=== PATIENT | female | born 1940 | race Caucasian/White ===

== ENCOUNTER 2016-07-22 22:05 | Emergency (ER) | payer MEDICARE ==
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
[2016-07-23] MEDS ORDERED: Ondansetron ODT TAB* 4 MG ONE (00:27)
[2016-07-23] MEDS ORDERED: Ondansetron ODT TAB* 4 MG PO ONE (00:29)
[2016-07-23 00:43] VITALS: BP 151/86
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
== END 2016-07-23 00:42 | disposition home or self-care (01) ==
LOC: ED 22:05
DX: S20.219A Contusion of unspecified front wall of thorax, initial encounter (principal); R07.9 Chest pain, unspecified; V47.5XXA Car driver injured in collision with fixed or stationary object in traffic accident, initial encounter; Y92.410 Unspecified street and highway as the place of occurrence of the external cause; Y93.9 Activity, unspecified; Y92.9 Unspecified place or not applicable; Y99.9 Unspecified external cause status
CPT/HCPCS: 70450; 71250; 74176; 99283; A9270-GY

== ENCOUNTER 2016-11-04 23:45 | Observation (INO) | payer MEDICARE ==
[2016-11-05 00:09] LABS: Hematocrit 37 % (35-47); Hemoglobin 12.3 g/dl (12.0-16.0); Mean Corpuscular HGB Conc 33 g/dl (31-36); Mean Corpuscular Hemoglobin 32 pg (27-31); Mean Corpuscular Volume 96 fL (80-97); Mean Platelet Volume 10 um3 (7.4-10.4); Red Blood Count 3.84 10^6/ul (4.0-5.4); Red Cell Distribution Width 13 % (10.5-15); White Blood Count 9.7 10^3/ul (3.5-10.8)
[2016-11-05 00:25] LABS: Albumin 3.6 g/dL (3.2-5.2); BUN/Creatinine Ratio 17.2 (8-20); Calcium 9.2 mg/dL (8.6-10.3); EGFR African American 58.3 (>60); EGFR Non-African American 45.3 (>60); Globulin 2.9 g/dL (2-4); Total Bilirubin 0.4 mg/dL (0.2-1.0); Total Protein 6.5 g/dL (6.4-8.9)
[2016-11-05 00:26] LABS: Potassium 4.7 mmol/L (3.5-5.0)
--- NOTE | 2016-11-05 00:48 | HP ---
H&P (Free Text) History and Physical: PCP: Khalif Hong MD Neurology: Trudi Shepard MD Date/Time of Evaluation: 11/05/2016 0035 CC: garbled speech HPI: Mrs Miller is a 76YO female HX complex migraine associated with garbled speech presents with rapid onset of headache and garbled speech last night between 1999 and 2100 while getting ready for bed. She had some mild nausea and difficulty swallowing, but no emesis, diarrhea, focal W/N/T, change in vision, chest pain, SOB, palpitations, or F/C. She has had a single similar episode in the past that she thinks was a TIA, but a note from her neurologist, Sarahy Shepard MD, relates he felt it was more likely to be a complex migraine. Currently she feels she is very nearly back to baseline on her speech, and her swallowing and headache are resolved. PMedHx DM2 AFIB on warfarin CKD stg 3a breast CA s/p lumpectomy & radiation HTN HLD hypothyroidism GERD migraines chronic gait instability (falls ~3x/year, last fall last Wednesday) IBS OAB Ambulatory Orders Atorvastatin* [Lipitor*] 10 mg PO EVERY OTHER DAY 05/27/12 Cholecalciferol [Vitamin D3] 3,000 unit PO DAILY 09/07/12 Magnesium 250 mg PO BID 09/07/12 Metformin HCl 500 mg PO TID 09/07/12 Metoprolol Succinate [Metoprolol Succinate ER] 100 mg PO BID 09/07/12 Multiple Vitamin [Multivitamins] 1 cap PO BEDTIME 09/07/12 Psyllium W/ Calcium [Metamucil Plus Calcium] 1 cap PO BEDTIME 09/07/12 Vitamin E 400 unit PO BEDTIME 09/07/12 Aspirin [Aspirin 81] 81 mg PO BEDTIME 02/20/14 Lactobacillus Acidophilu (GG)* [Culturelle*] 1 cap PO DAILY 02/20/14 Oxybutynin TAB* 10 mg PO DAILY 09/07/14 Warfarin TAB(*) 2.5 mg PO DAILY 09/07/14 Calcium Citrate-Vitamin D [Calcium Citrate+D] 1 tab PO DAILY 08/03/16 Esomeprazole Magnesium [Nexium] 40 mg PO DAILY 08/03/16 Levothyroxine TAB* [Synthroid TAB*] 50 mcg PO DAILY 08/03/16 Nortriptyline CAP* [Pamelor CAP*] 10 mg PO BEDTIME 08/03/16 Olopatadine 0.2% (NF) [Pataday 0.2% (NF)] 1 drop BOTH EYES DAILY PRN 08/03/16 Wheat Dextrin [Benefiber For Children] 1 pow PO BEDTIME 08/03/16 Allergies Propoxyphene [From Darvon] Allergy (Verified 01/23/14 10:56) DIZZINESS, N/V Silver Sulfadiazine [From Silvadene] Allergy (Verified 08/03/16 13:45) Unknown Reaction Details Sulfa Drugs Allergy (Verified 01/23/14 10:56) "SPACEY"UN COORDINATED ORAL-SEE ABOVE TOPICAL SULFA- RASH MOST ADHESIVE Allergy (Uncoded 01/23/14 10:56) Rash NARCOTICS Allergy (Uncoded 01/23/14 10:56) SENSITVE TO PSurgHx L lumpectomy hysterectomy w/ appendectomy L2 surgery w/ plate OU cataract extractions tonsillectomy SocHx: denies HX tobacco, alcohol, & recreational drugs; , lives alone , 3 children, was planning to move in today with her son & [id number] in [facility] which she is happy about; full code status, considering DNR FamHx: Mother: multi-infarct dementia, "respiratory problems"; Father: passed of CAD in his 60s ROS: as above, otherwise reviewed and all were negative Constitutional: NAD, normally developed, well-nourished elderly white female vitals: Vital Signs Temp 36.7 C 11/05/16 03:50 Pulse 80 11/05/16 03:50 Resp 14 11/05/16 03:50 BP 144/76 11/05/16 03:50 Pulse Ox 95 11/05/16 03:50 Intake & Output 11/04/16 11/04/16 11/05/16 11:59 23:59 11:59 Intake Total 0 Balance 0 Weight 61.87 kg Intake: Oral 0 HEENM: atraumatic; sclera/conjunctiva: non-icteric/clear; blephara: normal; hearing: clinically intact; oropharynx: clear, mucosa tacky Neck: soft tissue: non-tender; thyroid: normal Pulmonary: clear to auscultation bilaterally, good aeration, no accessory muscle use CV: RR/RR, normal S1S2, no carotid bruit, no jugular venous distention, 2+ B DP/ PT, no edema Abdominal: soft, non-distended, non-tender, no rebound/guarding/rigidity, normoactive bowel sounds, no hepatosplenomegaly or masses, no costovertebral angle tenderness Musculoskeletal: general: grossly intact, multiple DIP joint deformities of OA Integumental: normal appearance and texture of exposed skin Neurological cranial nerves II: visual posey tested & intact III/IV/: symmetric light reflex, EOMI/PERRLA V: intact facial sensation & mastication VII: intact facial symmetry & eye clench VIII: hearing mildly decreased IX/X: symmetric palatal motion, no dysarthria XII: midline tongue protrusion, normal voice articulation motor LUE: 4+/5 proximally, distally, & taxation economist strength RUE: 4+/5 proximally, distally, & taxation economist strength LLE: 4+/5 proximally & distally RLE: 4+/5 proximally & distally coordination finger/nose: mildly inaccurate R>L sensory crude touch: globally intact Psychiatric orientation: AA&O to PPS affect: calm mood: cooperative eye contact: good content: reliable responses: timely insight: good Testing: Laboratory Results - last 24 hr 11/04/16 11/04/16 11/04/16 23:56 23:56 23:56 WBC 9.7 RBC 3.84 L Hgb 12.3 Hct 37 MCV 96 MCH 32 H MCHC 33 RDW 13 Plt Count 232 MPV 10 Neut % (Auto) 71.3 Lymph % (Auto) 18.0 L Schleicher % (Auto) 7.5 Eos % (Auto) 2.4 Baso % (Auto) 0.8 Absolute Neuts (auto) 6.9 Absolute Lymphs (auto) 1.8 Absolute Monos (auto) 0.7 Absolute Eos (auto) 0.2 Absolute Basos (auto) 0.1 Absolute Nucleated RBC 0 Nucleated RBC % 0 INR (Anticoag Therapy) 1.86 H APTT 35.2 Sodium 137 Potassium 4.7 Chloride 105 Carbon Dioxide 24 Anion Gap 8 BUN 20 Creatinine 1.16 H Est GFR ( Amer) 58.3 Est GFR (Non-Af Amer) 45.3 BUN/Creatinine Ratio 17.2 Glucose 176 H Lactic Acid Calcium 9.2 Total Bilirubin 0.40 AST 27 ALT 22 Alkaline Phosphatase 88 Troponin I 0.00 Total Protein 6.5 Albumin 3.6 Globulin 2.9 Albumin/Globulin Ratio 1.2 Triglycerides 197 Cholesterol 157 LDL Cholesterol 80 HDL Cholesterol 38.0 Blood Type 11/04/16 11/05/16 23:56 00:20 WBC RBC Hgb Hct MCV MCH MCHC RDW Plt Count MPV Neut % (Auto) Lymph % (Auto) Schleicher % (Auto) Eos % (Auto) Baso % (Auto) Absolute Neuts (auto) Absolute Lymphs (auto) Absolute Monos (auto) Absolute Eos (auto) Absolute Basos (auto) Absolute Nucleated RBC Nucleated RBC % INR (Anticoag Therapy) APTT Sodium Potassium Chloride Carbon Dioxide Anion Gap BUN Creatinine Est GFR ( Amer) Est GFR (Non-Af Amer) BUN/Creatinine Ratio Glucose Lactic Acid 2.5 H* Calcium Total Bilirubin AST ALT Alkaline Phosphatase Troponin I Total Protein Albumin Globulin Albumin/Globulin Ratio Triglycerides Cholesterol LDL Cholesterol HDL Cholesterol Blood Type O Positive ECG, personally reviewed: NSR rate 99, no ischemia CXR, personally reviewed: no acute process CT brain WO, personally reviewed: IMPRESSION: 1. No acute intracranial abnormality 2. Likely age related micro-angiopathic disease. If there is clinical concern for acute on chronic disease, MRI has increased sensitivity. Impression: 76F presenting with TIA vs complex migraine DIAGNOSIS & PLAN Primary TIA vs complex migraine : telemetry : neurochecks : carotid ECHO in AM : MRI brain in AM : consider neurology consult in AM : supplemental oxygen : supportive care Secondary DM2 : check A1c : insulin carb ratio diet : basal/bolus/correctional insulin CKD stg 3a : periodic monitoring HTN : review meds once reconciled HLD : review meds once reconciled hypothyroidism : review meds once reconciled GERD : PO omeprazole OAB : review meds once reconciled Admission Rational: CDU observation for TIA vs complex migraine DVTp: heparin SQ Code Status: full HCP: children
[2016-11-05] MEDS ORDERED: Acetaminophen TAB* 325 MG PO PRN (01:58)
[2016-11-05] MEDS ORDERED: Aspirin Low Dose CHEW TAB* 81 MG PO ONE (01:59)
[2016-11-05 03:33] LABS: Urine Bacteria 1+ (Absent); Urine Bilirubin Negative (Negative); Urine Glucose Negative (Negative); Urine Nitrite Negative (Negative)
[2016-11-05] MEDS: Levothyroxine TAB* 50 MCG TAB PO SCH (05:22)
[2016-11-05] MEDS: Omeprazole CAP* 20 MG PO SCH (07:25)
--- NOTE | 2016-11-05 07:27 | RAD ---
INDICATION: CVA. COMPARISON: Comparison is made with a prior study from January 06, 2014. TECHNIQUE: A portable view of the chest was obtained. FINDINGS: Cardiac and mediastinal contours appear to be within normal limits. The lungs are underinflated and clear. No pleural effusion is seen. IMPRESSION: NO EVIDENCE FOR ACUTE DISEASE.
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
[2016-11-05] MEDS: Insulin LISPRO* 1 UNITS UNIT SUBCUT SCH ×7 (08:10→22:17)
[2016-11-05] MEDS ORDERED: Atorvastatin* 10 MG TAB PO SCH (09:00)
[2016-11-05] MEDS ORDERED: Oxybutynin TAB* 5 MG PO SCH ×2 (09:00→21:00)
[2016-11-05] MEDS ORDERED: Metoprolol Succinate XL TAB* 100 MG PO SCH (09:00)
--- NOTE | 2016-11-05 09:46 | ECHO ---
Patient: MARGARITA HERNANDEZ Rec#: [id number] : 1940 Date: 11/05/2016 Age: 76y Height: 140 cm / 55.1 in Weight: 61 kg / 134.4 lbs Sex: F BSA: 1.5 Room#: [facility] Admit Date#: 11/05/2016 Type: Inpatient Referring: Misha Portillo MD Reading: Kendell Fernando MD Labor Standards Director: Lay Solis RN RDCS CC: Claudia Tyler MD Transthoracic Echocardiogram Indication: TIA BP: 144/76 HR: 78 Rhythm: NSR Findings History: HTN, DM, HLD, migraines, TIA, breast cancer Technical Comments: The study is technically difficult. Suboptimal off axis views offered for interpretation Left Ventricle: The left ventricular chamber size is decreased. There is increased basal septal hypertrophy noted without evidence of an increased gradient across the left ventricular outflow tract. Global left ventricular wall motion and contractility are within normal limits. There is normal left ventricular systolic function. The estimated ejection fraction is 60-65%. Abnormal left ventricular diastolic filling is observed, consistent with impaired relaxation. The lack of left atrial enlargement suggests this finding may not have clinical significance. Left Atrium: The left atrial chamber size is normal. Right Ventricle: The right ventricular chamber size and systolic function are within normal limits. Right Atrium: The right atrial cavity size is normal. Aortic Valve: The aortic valve is trileaflet. The aortic valve leaflets are mildly thickened. There is no evidence of aortic regurgitation. There is no evidence of aortic stenosis. Mitral Valve: The mitral valve leaflets are mildly thickened. There is trace to mild mitral regurgitation. There is no evidence of mitral stenosis. Tricuspid Valve: The tricuspid valve leaflets are normal. There is trace to mild tricuspid regurgitation. There is evidence of borderline pulmonary hypertension. There is no tricuspid stenosis. Pulmonic Valve: The pulmonic valve appears normal. There is mild pulmonic regurgitation. There is no pulmonic stenosis. Pericardium: There is no significant pericardial effusion. A pericardial fat pad is visualized. Aorta: There is no dilatation of the ascending aorta. There is no dilatation of the aortic arch. There is no dilation of the aortic root. Pulmonary Artery: The main pulmonary artery appears normal. Venous: The inferior vena cava is not visualized. Conclusions The study is technically difficult. Suboptimal off axis views offered for interpretation There is increased basal septal hypertrophy noted without evidence of an increased gradient across the left ventricular outflow tract. Global left ventricular wall motion and contractility are within normal limits. There is normal left ventricular systolic function. The estimated ejection fraction is 60-65%. There is trace to mild mitral regurgitation. There is trace to mild tricuspid regurgitation with borderline pulmonary HTN. Compared to report of TTE of 01/07/2014 and JEAN of 02/21/2014 the current visualized TR and MR are less (was reported as moderate by JEAN), the LV systolic function is mildly increased (was by JEAN 55-60%), the pulmonic regurgitation is more (was reported by JEAN as trace). No bubble study was ordered on this current study. Measurements Name Value Normal Range IVSd (2D) 1.6 cm (0.6 - 1) LVPWd (2D) 1 cm (0.6 - 1) LVIDd (2D) 3.5 cm (3.6 - 5.4) LVIDs (2D) 2.5 cm - Aortic Annulus 1.9 cm (1.4 - 2.6) Ao root diameter (2D) 2.6 cm (2.1 - 3.5) Ascending Ao 3.3 cm (2.1 - 3.4) Aortic arch 1.9 cm (1.8 - 3.4) LA dimension (AP) 2D 2.7 cm (2.3 - 3.8) Name Value Normal Range LA ESV SP 4CH (A/L) 39 ml - LA ESV SP 2CH (A/L) 23 ml - LA ESV BP (A/L) 32 ml - LA ESV BP (A/L) index 22 ml/m2 - LA ESV SP 4CH (MOD) 37 ml - LA ESV SP 2CH (MOD) 23 ml - Name Value Normal Range MV E-wave Vmax 0.93 m/sec - MV deceleration time 267 msec - MV A-wave Vmax 1.4 m/sec - MV E:A ratio 0.66 ratio - LV septal e' Vmax 0.06 m/sec - LV lateral e' Vmax 0.07 m/sec - LV E:e' septal ratio 155 ratio - LV E:e' lateral ratio 13.3 ratio - Name Value Normal Range AV Vmax 1.3 m/sec - AV VTI 26.1 cm - AV peak gradient 5.7 mmHg - AV mean gradient 4.6 mmHg - LVOT Vmax 1.2 m/sec - LVOT VTI 22 cm - LVOT peak gradient 5.6 mmHg - LVOT mean gradient 2.4 mmHg - DEE Vmax 0.58 m/sec - Name Value Normal Range TR Vmax 2.6 m/sec - TR peak gradient 27 mmHg - RAP 8 mmHg - RVSP 35 mmHg - Name Value Normal Range PV Vmax 0.64 m/sec -
--- NOTE | 2016-11-05 10:58 | RAD ---
HISTORY: Headache, garbled speech, dizziness COMPARISONS: Head CT dated November 04, 2016, MRI dated January 08, 2014 TECHNIQUE: The following sequences were obtained of the head: Sagittal T1-weighted images, axial T2-weighted images, axial FLAIR images, axial susceptibility weighted images, axial T1-weighted images. Additionally, axial diffusion-weighted images were obtained with calculated apparent diffusion coefficients. FINDINGS: HEMORRHAGE/INFARCT: There is no hemorrhage or acute infarct. MASSES/SHIFT: There is no mass or shift. EXTRA-AXIAL SPACES/MENINGES: There are no extra-axial fluid collections. SULCI AND VENTRICLES: There is mild diffuse and proportional enlargement of the sulci and ventricles. CEREBRUM: There are several scattered small foci of elevated T2/FLAIR signal within the periventricular and subcortical white matter. These are stable BRAINSTEM: There is minimally elevated T2/FLAIR signal in the pontine white matter. This is stable from the previous examination. CEREBELLUM: There are no focal parenchymal abnormalities. The cerebellar tonsils are normal in size and position. SELLA: The sella is normal. PINEAL: The pineal region is clear. CP ANGLE/TEMPORAL BONES: The labyrinthine structures are grossly normal. VESSELS: Normal flow-voids are noted within the visualized vertebral vasculature. DIFFUSION ABNORMALITIES: There are no diffusion abnormalities. PARANASAL SINUSES/MASTOIDS: The paranasal sinuses are clear. ORBITS: The orbits are unremarkable. BONES AND SOFT TISSUE: No bone or soft tissue abnormalities are noted. OTHER: None IMPRESSION: 1. STABLE WHITE MATTER CHANGES, NONSPECIFIC BUT SUGGESTIVE OF CHRONIC SMALL VESSEL ISCHEMIA. 2. NO RESTRICTED DIFFUSION TO SUGGEST ACUTE INFARCT
--- NOTE | 2016-11-05 13:42 | PN ---
Subjective Date of Service: 11/05/16 Interval History: Patient seen and examined at bedside. Pt states that she is feeling better today , but continues to feel like she has right sided weakness, an unsteady gait and speech difficulties. Denies fever, chills, shortness of breath, chest discomfort , N/V/D. Ms. Miller feels that this is similar to presentation when she had her previous TIA. Tele: Sinus rhythm, rate 70's. Family History: Unchanged from Admission Social History: Unchanged from Admission Past Medical History: Unchanged from Admission Objective Active Medications: Acetaminophen (Tylenol Tab*) 650 mg PO Q6H PRN Reason: FEVER/PAIN Aspirin (Aspirin Low Dose Tab*) 81 mg PO DAILY EILEEN Atorvastatin Calcium (Lipitor*) 10 mg PO EVERY OTHER DAY EILEEN Gabapentin (Neurontin Cap(*)) 400 mg PO BEDTIME EILEEN Insulin Glargine (Lantus(*)) 12 units SUBCUT 2100 PENDING SALE TO [facility] Stop: 11/06/16 20:00 Insulin Human Lispro (Humalog*) 0 units SUBCUT AC EILEEN Reason: Protocol Insulin Human Lispro (Humalog*) 0 units SUBCUT ACHS PENDING SALE TO [facility] Reason: Protocol Levothyroxine Sodium (Synthroid Tab*) 50 mcg PO DAILY@0600 PENDING SALE TO [facility] Metoprolol Succinate (Toprol Xl Tab*) 100 mg PO BID EILEEN Omeprazole (Prilosec Cap*) 20 mg PO DAILY@0730 EILEEN Oxybutynin Chloride (Ditropan Tab*) 10 mg PO DAILY@2100 PENDING SALE TO [facility] Warfarin Sodium (Coumadin Tab(*)) 1 mg PO Q48H PENDING SALE TO [facility] Vital Signs 11/05/16 11/05/16 11/05/16 03:40 03:50 07:12 Temperature 98.1 F 98.1 F 98.0 F Pulse Rate 80 80 87 Respiratory 18 14 16 Rate Blood Pressure 144/76 144/76 131/53 (mmHg) O2 Sat by Pulse 95 95 98 Oximetry 11/05/16 11/05/16 08:40 11:32 Temperature 98.7 F Pulse Rate 70 Respiratory 16 Rate Blood Pressure 136/65 (mmHg) O2 Sat by Pulse 97 99 Oximetry Oxygen Devices in Use Now: None Appearance: NAD, laying in bed. Eyes: No Scleral Icterus Ears/Nose/Mouth/Throat: Mucous Membranes Moist Respiratory: Symmetrical Chest Expansion and Respiratory Effort, Clear to Auscultation Cardiovascular: NL Sounds; No Murmurs; No JVD, RRR Abdominal: NL Sounds; No Tenderness; No Distention Extremities: No Edema Skin: No Rash or Ulcers Neurological: Alert and Oriented x 3, - - Hand heel lift gouger equal, able to dorsi and plantar flex bilateral, right plantar flex slightly weaker than left. Tongue midline and smile symmetric. Able to perform finger to nose bilateral and heel from ankle to knee bilateral, right slower slightly jerky movements. Lines/Tubes/Other Access: Clean, Dry and Intact Peripheral IV - site benign Result Diagrams: 11/04/16 23:56 11/04/16 23:56 Assess/Plan/Problems-Billing Assessment: Ms. Miller is a 76 yo female with PMH possible TIA, DM, Afib, CKD, HTN, HLD, migraines and chronic gait instability who presented to the emergency room with complaints of headache and garbled speech. - Patient Problems (1) Speech abnormality Comment: - TIA vs complex migraine - Headache has resolved, continues to have some speech difficulty and slight right sided weakness - This presentation was similar to episode in the past that was felt to be a possible complex mirgaine - MRI - stable white matter changes, nonspecific but suggest chronic small vessel ischemia, no signs acute infarct - TTE - EF 60-65%, increased basal septal hypertrophy, no bubble study completed - Neurology consult pending (2) Diabetes Code(s): E11.9 - TYPE 2 DIABETES MELLITUS WITHOUT COMPLICATIONS SNOMED Code(s) : 77540560 Comment: - HgA1C pending - Glucose 90-170's - Hold Glipizide - Continue Lispro SS and consistent carb diet (3) CKD (chronic kidney disease) Code(s): N18.9 - CHRONIC KIDNEY DISEASE, UNSPECIFIED SNOMED Code(s): 524624302 Comment: - At baseline - Will monitor (4) HTN (hypertension) Code(s): I10 - ESSENTIAL (PRIMARY) HYPERTENSION SNOMED Code(s): 64666042 Comment: - Normotensive (5) HLD (hyperlipidemia) Code(s): E78.5 - HYPERLIPIDEMIA, UNSPECIFIED SNOMED Code(s): 70070004 Comment: - Continue Atorvastatin (6) Hypothyroidism Code(s): E03.9 - HYPOTHYROIDISM, UNSPECIFIED SNOMED Code(s): 60436920 Comment: - TSH 1.70 on 09/07/16 - Continue levothyroxine (7) GERD (gastroesophageal reflux disease) Code(s): K21.9 - GASTRO-ESOPHAGEAL REFLUX DISEASE WITHOUT ESOPHAGITIS SNOMED Code(s): 460428264 Comment: - Continue PPI (8) Overactive bladder Code(s): N32.81 - OVERACTIVE BLADDER SNOMED Code(s): 195742300 Comment: - Continue Oxybutynin (9) DVT prophylaxis Code(s): UYO6396 - SNOMED Code(s): 134770675 Comment: - SQ heparin (10) Full code status Code(s): Z78.9 - OTHER SPECIFIED HEALTH STATUS SNOMED Code(s): 572080363 Status and Disposition: OBV. Discharge to home when medically stable, possibly later today.
[2016-11-05] MEDS ORDERED: Warfarin TAB(*) 1 MG PO SCH (17:00)
[2016-11-05] MEDS ORDERED: Warfarin TAB(*) 5 MG PO SCH (17:00)
--- NOTE | 2016-11-05 17:35 | RAD ---
CPT II: CPT II Codes: 3100F Indication: Expressive aphasia. Duplex Doppler sonography of the carotid arteries was performed. The right common carotid artery demonstrates no intimal wall thickening. Plaque is noted in the carotid bulb extending into the right internal carotid artery. Peak systolic velocity of the distal right common carotid artery 74 cm/s. Peak systolic velocity of the proximal right internal carotid artery 68 cm/s. The ICA/CC ratio 0.91. Right vertebral artery demonstrates antegrade flow. Left common carotid artery demonstrates no intimal wall thickening. Minimal plaque is noted in the carotid bulb extending into the left internal carotid artery. Peak systolic velocity of the distal left common carotid arteries 89 cm/s. Peak systolic velocity of the left internal carotid artery 68 cm/s. The ICA/CC ratio is 0.76. Left vertebral artery demonstrates antegrade flow. IMPRESSION: Less than 50% stenosis of both internal carotid arteries.
[2016-11-05] MEDS ORDERED: Gadoteridol* (CONTRAST) 279.3 MG/ML 10 ML IV ONE (19:50)
--- NOTE | 2016-11-05 20:32 | RAD ---
Indication: Myelopathy. Image sequences: Sagittal T1, T2, STIR, axial T1 and gradient echo images were obtained. The vertebral bodies appear normal in height. No evidence of bone marrow signal loss is noted. Minimal degenerative disc disease is noted at C4-C5, C5-C6 and C6-C7 with minimal spondylitic ridge. No central or foraminal stenosis is noted. No evidence of spinal cord compression is noted. IMPRESSION: Degenerative disc disease at C4-C5, C5-C6 and C6-C7 with minimal spondylitic ridge. No spinal cord compression is noted.
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
[2016-11-05] MEDS ORDERED: Gabapentin CAP(*) 400 MG PO SCH (21:00)
[2016-11-05] MEDS ORDERED: Insulin GLARGINE(*) 1 UNITS UNIT SUBCUT SCH (21:00)
[2016-11-06] MEDS: Levothyroxine TAB* 50 MCG TAB PO SCH (06:06)
[2016-11-06 06:55] LABS: HDL Cholesterol 33.7 mg/dL
[2016-11-06] MEDS: Insulin LISPRO* 1 UNITS UNIT SUBCUT SCH ×6 (08:16→16:52)
--- NOTE | 2016-11-06 08:17 | RAD ---
INDICATION: Follow-up right acoustic neuroma. Image sequences: Thin section axial T2, coronal and axial thin section T1 fat-suppressed images of the cerebellopontine angles were obtained. Postcontrast thin section axial and coronal T1-weighted fat-suppressed images were obtained. T1-weighted images of the entire brain were also obtained. Comparison is made with previous exam dated June 02, 2012. Again noted is an enhancing nodule in the right internal auditory canal consistent with a vestibulocochlear schwannoma. This does not appear to be significantly changed in size since previous exam, measuring at most 4 mm. The left vestibular cochlear nerve complexes are unremarkable. The remainder of the brain demonstrates no evidence of abnormally enhancing masses. Atrophy is noted. IMPRESSION: 4 mm enhancing nodule in the right internal auditory canal, unchanged from previous exam of May 15, 2012, consistent with a right-sided vestibular cochlear schwannoma.
[2016-11-06] MEDS: Omeprazole CAP* 20 MG PO SCH (08:18)
[2016-11-06] MEDS ORDERED: Aspirin Low Dose CHEW TAB* 81 MG PO SCH (09:00)
[2016-11-06] MEDS ORDERED: Metoprolol Succinate XL TAB* 100 MG PO SCH (09:00)
--- NOTE | 2016-11-06 09:47 | EEG ---
ELECTROENCEPHALOGRAM: DATE OF RECORDING/ DICTATION: 11/06/16 HISTORY OF PRESENT ILLNESS: Lena Miller is a 76-year-old woman who is admitted to hospital with a second episode of expressive aphasia. She became dizzy, nauseated, and had difficulty speaking for about 30 minutes. She knew what she wanted to say but the wrong words would come out. After the episode, she had a headache in the bilateral temporal region for 30 minutes. She is noted to return to her normal baseline with the exception of some word finding difficulties. DESCRIPTION OF THE RECORD: This was a 16-channel EEG. In the beginning of the record, there was posterior dominant 9 to 10 Hz alpha rhythm, which were attenuated with eye opening. Soon after the record, intermittent slowing with sharply contoured waves is noted in the left frontal temporal region. As the record continued, the asymmetry was noted intermittently, at times associated with sharp waves with phase reversal in the left frontal temporal region. During the recording, the patient remained in the awake state. IMPRESSION: This was an abnormal EEG. There was intermittent left fronto- temporal slowing with occasional sharp waves with phase reversal, particularly localizing around the F7 electrode. [id number]/[facility] #: [id number] IVANIA
[2016-11-06] MEDS ORDERED: levETIRAcetam TAB* 500 MG PO SCH (11:00)
--- NOTE | 2016-11-06 11:19 | PN ---
Subjective Date of Service: 11/06/16 Interval History: Patient seen and examined at bedside. Pt states that she is feeling well this morning, but continues to have some gait trouble. Denies fever, chills, shortness of breath, chest discomfort, N/V/D. Pt is anxious to be discharged to home today as she is suppose to be moving to [place]. Tele: Sinus rhythm, rate 70-80's. Pt with a few missed beats, less than 1.6 seconds. Family History: Unchanged from Admission Social History: Unchanged from Admission Past Medical History: Unchanged from Admission Objective Active Medications: Acetaminophen (Tylenol Tab*) 650 mg PO Q6H PRN Reason: FEVER/PAIN Aspirin (Aspirin Low Dose Tab*) 81 mg PO DAILY [facility] Atorvastatin Calcium (Lipitor*) 10 mg PO EVERY OTHER DAY [facility] Gabapentin (Neurontin Cap(*)) 400 mg PO BEDTIME [facility] Insulin Glargine (Lantus(*)) 12 units SUBCUT 2100 [facility] Stop: 11/06/16 20:00 Insulin Human Lispro (Humalog*) 0 units SUBCUT AC [facility] Reason: Protocol Insulin Human Lispro (Humalog*) 0 units SUBCUT ACHS [facility] Reason: Protocol Levetiracetam (Keppra Tab*) 250 mg PO BID [facility] Levothyroxine Sodium (Synthroid Tab*) 50 mcg PO DAILY@0600 [facility] Metoprolol Succinate (Toprol Xl Tab*) 100 mg PO DAILY [facility] Omeprazole (Prilosec Cap*) 20 mg PO DAILY@0730 [facility] Oxybutynin Chloride (Ditropan Tab*) 10 mg PO DAILY@2100 [facility] Pharmacy Profile Note (Coumadin Per Pharmacy*) 1 note FOLLOW UP .PER PHARMACY PROTOC [facility] Reason: Protocol Warfarin Sodium (Coumadin Tab(*)) 2.5 mg PO 1700 [facility] Stop: 11/06/16 17:01 Vital Signs 11/05/16 11/05/16 11/05/16 11:32 16:13 20:41 Temperature 98.7 F 98.4 F Pulse Rate 70 80 Respiratory 16 16 Rate Blood Pressure 136/65 150/70 (mmHg) O2 Sat by Pulse 99 99 98 Oximetry 11/05/16 11/05/16 11/06/16 22:16 23:23 00:16 Temperature 98.2 F Pulse Rate 65 Respiratory 18 16 18 Rate Blood Pressure 145/59 (mmHg) O2 Sat by Pulse 100 Oximetry 11/06/16 11/06/16 03:10 08:19 Temperature 97.9 F 97.3 F Pulse Rate 86 81 Respiratory 14 16 Rate Blood Pressure 145/85 134/82 (mmHg) O2 Sat by Pulse 100 96 Oximetry Oxygen Devices in Use Now: None Appearance: NAD, sitting up in a chair Eyes: No Scleral Icterus Ears/Nose/Mouth/Throat: Mucous Membranes Moist Respiratory: Symmetrical Chest Expansion and Respiratory Effort, Clear to Auscultation Cardiovascular: NL Sounds; No Murmurs; No JVD, RRR Abdominal: NL Sounds; No Tenderness; No Distention Extremities: No Edema Skin: No Rash or Ulcers Neurological: Alert and Oriented x 3, NL Muscle Strength and Tone Lines/Tubes/Other Access: Clean, Dry and Intact Peripheral IV - site benign Nutrition: Taking PO's Result Diagrams: 11/04/16 23:56 11/04/16 23:56 Assess/Plan/Problems-Billing Assessment: Ms. Miller is a 76 yo female with PMH possible TIA, DM, Afib, CKD, HTN, HLD, migraines and chronic gait instability who presented to the emergency room with complaints of headache and garbled speech. - Patient Problems (1) Seizures Code(s): R56.9 - UNSPECIFIED CONVULSIONS SNOMED Code(s): 70765591 Comment: - EEG - intermittent slowing with occasional sharp waves with phase reversal localized at F7 electrode - Neurology consult, input appreciated - Started on Keppra per Neurology (2) Speech abnormality Comment: - Headache has resolved, speech difficulty and slight right sided weakness improved - This presentation was similar to episode in the past that was felt to be a possible complex migraine - MRI - stable white matter changes, nonspecific but suggest chronic small vessel ischemia, no signs acute infarct - TTE - EF 60-65%, increased basal septal hypertrophy, no bubble study completed - Neurology consult, input appreciated - EEG - intermittent slowing with occasional sharp waves with phase reversal localized at F7 electrode (3) Diabetes Code(s): E11.9 - TYPE 2 DIABETES MELLITUS WITHOUT COMPLICATIONS SNOMED Code(s) : 35773346 Comment: - HgA1C 7.7 - Glucose 120-140's - Resume Glipizide (4) CKD (chronic kidney disease) Code(s): N18.9 - CHRONIC KIDNEY DISEASE, UNSPECIFIED SNOMED Code(s): 471090130 Comment: - At baseline - Will monitor (5) HTN (hypertension) Code(s): I10 - ESSENTIAL (PRIMARY) HYPERTENSION SNOMED Code(s): 72952831 Comment: - Normotensive (6) HLD (hyperlipidemia) Code(s): E78.5 - HYPERLIPIDEMIA, UNSPECIFIED SNOMED Code(s): 17710693 Comment: - Continue Atorvastatin (7) Hypothyroidism Code(s): E03.9 - HYPOTHYROIDISM, UNSPECIFIED SNOMED Code(s): 06054966 Comment: - TSH 1.70 on 09/07/16 - Continue levothyroxine (8) GERD (gastroesophageal reflux disease) Code(s): K21.9 - GASTRO-ESOPHAGEAL REFLUX DISEASE WITHOUT ESOPHAGITIS SNOMED Code(s): 491110539 Comment: - Continue PPI (9) Overactive bladder Code(s): N32.81 - OVERACTIVE BLADDER SNOMED Code(s): 132972721 Comment: - Continue Oxybutynin (10) Afib Code(s): I48.91 - UNSPECIFIED ATRIAL FIBRILLATION SNOMED Code(s): 42911771 Comment: - Currently in sinus rhythm - INR is subtherapeutic, recheck INR on Wednesday with results to PCP - Continue Warfarin and Metoprolol (11) DVT prophylaxis Code(s): CBI2358 - SNOMED Code(s): 710568535 Comment: - SQ heparin (12) Full code status Code(s): Z78.9 - OTHER SPECIFIED HEALTH STATUS SNOMED Code(s): 647443724 Status and Disposition: OBV. Discharge to home when medically stable, possibly later today.
[2016-11-06] MEDS ORDERED: glipiZIDE TAB.XL* 2.5 MG PO SCH (12:00)
--- NOTE | 2016-11-06 12:00 | PN ---
CC: Dr. Sarahy Shepard; Dr. Claudia Hong In addition to this note, appreciate a copy of the 11/05/[address] consult [address] forwarded to Dr. Sarahy Shepard and Dr. Hong PROGRESS NOTE: DATE OF VISIT: 11/06/16 HISTORY OF PRESENT ILLNESS: Lena Miller is a 76-year-old woman who I saw yesterday in consultation for repeat expressive aphasia with concerns also regarding balance with a recent significant fall. As outlined in the consultation, differential diagnosis included transient ischemic attack, for which she had had a workup. We proceeded with carotid Dopplers since yesterday' s consult, which showed less than 50% stenosis. Differential diagnosis raised in 2013 with previous episode included migraine with aura. Again, after this most recent episode, she did have a headache and that is a potential differential diagnosis. Differential diagnosis also includes seizure and we proceeded to get an EEG, which showed intermittent left frontotemporal sharp waves. Other workup since yesterday includes a dedicated MRI scan to evaluate her previously known acoustic neuroma, which is felt to be stable at 4 mm since her last scan in 2012. She also had an MRI of the cervical spine given her recent fall and right Babinski, which showed degenerative disk disease at multiple levels, but no evidence of spinal cord injury in the cervical region. Of note, she does have other potential reasons for balance difficulty including her history of diabetes and potential reason for Babinski including chronic pontine ischemia. Acoustic neuroma may contribute to hearing loss and potentially balance difficulties. On today's visit, Lena Miller was visiting with her son. She was awake, alert, articulate. Her most recent vitals included temperature of 97.3, heart rate of 81, respiratory rate 16, saturation 96%, blood pressure 134/82. Her MAR was reviewed on today's visit. Her new data includes a lipid profile, which showed a total cholesterol 144 with an LDL of 66, triglycerides 222, and HDL of 33.7. Her dedcn-pd-[id number] glucose continues to be elevated around 130 to 150. Her INR today was 1.69. Other data included as noted above MRI of the IAC with and without contrast confirming the right acoustic neuroma, which is stable. MRI of the cervical spine, which showed degenerative disk disease, but no evidence of spinal cord pathology. These films were reviewed directly and I will be contacting the radiologist to discuss the MRI of the internal auditory canal further. MRI of the brain was reviewed. Carotid Dopplers again showed less than 50% stenosis bilaterally and EEG showed significant findings of intermittent left frontotemporal sharp waves. IMPRESSION AND PLAN: Lena Miller is a 76-year-old woman with episodes of repeat expressive aphasia with abnormal electroencephalogram with most consistent with simple partial seizure. Education was given regarding seizures , why they can occur, how they are treated, and the potential for secondary generalization. Lena is on multiple medications including Coumadin. At this point, I have suggested trying a low dose Keppra given less potential for interaction with other medications. I have suggested starting a 250 mg p.o. b.i.d. and side effects were discussed including, but not limited to tiredness, allergic reaction, mood change. If there is any significant mood change, she will need to be put on to a different medication. We talked about other potential medications, Lamictal may be another good choice; however, it is a very slow upward taper, and she is moving from the region. She does have history of migraines and Depakote could be considered; however, given it affects the third phase of platelet aggregation and also there is need for laboratory monitoring. With her leaving the region and being on Coumadin, I have not suggested this medication. It will be interesting to see if some of her migrainous symptoms improve with starting Keppra. She does need to have a neurologist in the [facility] and this was emphasized. In regards to her balance, Physical Therapy did assess her. They have suggested a walker and this was reinforced on today's visit. We talked about the importance of ongoing physical therapy and exercise as well as a walker for stability. We talked about different pathology as noted above that may contribute to her balance difficulty. We talked about how her eyes compensate for her feet and she should not be wearing her reading glasses when walking. Urine culture is pending looking for any other cause that could have contributed to this event. Certainly, just stress and sleep deprivation may have contributed. Interestingly, each admission for expressive aphasia occurred in the setting of stress, the first in the setting of anticipated cataract surgery the next day and this event in the setting of moving. Over 50 minutes was spent in patient care; over 50% of the time was spent in education and counseling regarding above issues. All questions were answered. Education was provided to not only Lena Miller but also her son, Dimas, who was at bedside. [id number]/[facility] #: [id number] IVANIA
[2016-11-06 16:23] VITALS: BP 126/61
[2016-11-06] MEDS ORDERED: Warfarin TAB(*) 2.5 MG PO ONE (17:00)
--- NOTE | 2016-11-07 06:16 | DS ---
CC: Dr. Claudia Hong; Dr. Sarahy Shepard * DISCHARGE SUMMARY: DATE OF ADMISSION: DATE OF DISCHARGE: ATTENDING PHYSICIAN: Dr. Jostin Flor *(dictated by Sharon Hoover NP). PRIMARY CARE PROVIDER: Dr. Claudia Hong. NEUROLOGIST: Dr. Sarahy hSepard. PRIMARY DIAGNOSIS: Simple partial seizure. SECONDARY DIAGNOSES: 1. Diabetes mellitus. 2. Atrial fibrillation. 3. Chronic kidney disease. 4. Hypertension. 5. Hyperlipidemia. 6. Migraines. 7. Chronic gait instability. 8. Acoustic neuroma. CONSULTATIONS WHILE IN THE HOSPITAL: Dr. Lena Avila with Neurology. STUDIES WHILE IN THE HOSPITAL: 1. Brain CT on 09/06/16. Radiologist's impression: No acute intracranial pathology. Diffuse involutional change with chronic small-vessel ischemic changes. 2. Chest x-ray from 11/04/16. Radiologist's impression: No evidence for acute disease. 3. Brain MRI from 11/05/16. Radiologist's impression: Stable white matter changes, nonspecific, but suggestive of chronic small vessel ischemia. No restricted diffusion to suggest acute infarct. 4. Transthoracic echocardiogram from 11/05/16. Travel Director's impression: This study is technically difficult. Suboptimal off-axis views offered for interpretation. There was increased basal septal hypertrophy noted without evidence of an increased gradient across the left ventricular outflow tract. Global left ventricular wall motion and contractility are within normal limits. There is normal left ventricular systolic function. The estimated ejection fraction is 60% to 65%. There is sedwj-lk-[id number] mitral regurgitation. There is tvsng-jk-fqhk tricuspid regurgitation with borderline pulmonary hypertension. Compared to report of [facility]TE of 01/07/14 and JEAN of 02/21/14, the current visualized TR and MR are less, the LV systolic function is mildly increased, the pulmonic regurgitation is more. No bubble study was ordered on this current study. 5. Carotid Doppler study on 11/05/16. Radiologist's impression: Less than 50 % stenosis of both internal carotid arteries. 6. MRI IAC's with and without on 11/05/16. Radiologist's impression: A 4-mm enhancing nodule in the right internal auditory canal, unchanged from previous exam of 05/15/12, consistent with a right-sided vestibulocochlear Schwannoma. 7. Electroencephalogram on 11/06/16. Neurologist's impression: This was an abnormal EEG. There was intermittent left frontotemporal slowing with occasional sharp waves with phase reversal, particularly localizing around the F7 electrode. DISCHARGE MEDICATIONS: New home medication: Keppra 250 mg oral twice daily. Continued home medications: 1. Vitamin E 400 mg oral daily at bedtime. 2. Magnesium 500 mg oral daily. 3. Multivitamin 1 capsule oral daily at bedtime. 4. Ditropan 10 mg oral daily. 5. Vitamin D3 3000 units oral daily. 6. Aspirin 81 mg oral daily. 7. Pataday 0.2% one drop to both eyes twice daily. 8. Metoprolol succinate 100 mg oral daily. 9. Lactobacillus 1 capsule oral daily. 10. Warfarin 2.5 mg oral daily. 11. Cyclobenzaprine 2.5 to 5 mg oral daily at bedtime as needed for muscles spasms. 12. Glipizide ER 2.5 mg oral daily. 13. Metamucil 1 pack oral daily. 14. Gabapentin 400 mg oral daily at bedtime. 15. Levothyroxine 50 mcg oral daily. 16. Nexium 40 mg oral daily. 17. Calcium citrate/vitamin D 1 tablet oral daily. 18. Atorvastatin 10 mg oral every other day. HISTORY OF PRESENT ILLNESS/HOSPITAL COURSE: Ms. Miller is a 76-year-old female with past medical history significant for diabetes mellitus; atrial fibrillation, on warfarin; chronic kidney disease stage 3; breast cancer; hypertension; hyperlipidemia; migraines; chronic gait instability, who presents to the emergency room with complaints of garbled speech with associated rapid onset headache while getting ready for bed. The patient also reported some mild nausea and difficulty swallowing. She had no visual changes, no focal weakness. The patient did feel that her gait was off, but she does have a chronic gait instability for approximately the last 3 years with her last fall on 11/01/16. This episode is similar to an episode that she thought that she had had a TIA; but upon further reevaluation, Dr. Sarahy Shepard felt that it may have been a complex migraine. The patient presented to the emergency room for further evaluation of her symptoms. While in the emergency room, the patient's speech was almost back to her baseline. Her swallowing difficulties and headache had resolved. She had an MRI showing no acute findings. A brain CT showing no acute findings. A chest x -ray with no acute findings. Based off the patient's presentation, the Hospitalists were asked to evaluate her for admission. While in the hospital, the patient was initially worked up for a TIA versus complex migraine. She had an MRI of her brain with no acute findings. She had neurological check showing a slight right-sided weakness. Upon further discussion with the patient, it was discovered that the patient's similar previous episodes occurred around times of stress. The patient was also seen by Physical Therapy, who recommended she have a rolling walker. Due to the patient's symptoms, a Neurology consult was obtained. Neurology asked for a carotid Doppler study showing less than 50% stenosis of both internal carotid arteries. In addition, the patient had an MRI to evaluate her acoustic neuroma , which was stable. The patient also had a cervical spine MRI with no significant findings. The patient underwent an electroencephalogram that was abnormal showing an intermittent left frontotemporal slowing with occasional sharp waves, particularly localizing around the F7 electrode. Neurology recommended the patient be started on Keppra low dose at 250 mg oral twice daily. Keppra was chosen due to the patient's moving from the area and she has been encouraged to get a neurologist in the [facility] where she will be moving. Currently, the patient has no signs of infection. She has been afebrile. No leukocytosis. She was noted to have asymptomatic bacteriuria with Klebsiella pneumoniae and a colony count of 10,000 to 25,000. She was not started on antibiotics. The patient was also noted to have a subtherapeutic INR during her stay and has been asked to recheck her INR on Wednesday morning with results to her primary care provider. Ms. Miller is stable for discharge to home today. Vital signs are as follows : Temperature 98.5, heart rate 76, respiratory rate 16, O2 sat 93% on room air, blood pressure 126/61. DISCHARGE PLAN: Ms. Miller will be discharged to home. ACTIVITY: As tolerated. DIET: Consistent carbohydrate diet. As far as the patient's new onset seizures, she has been started on Keppra 250 mg oral twice daily. The side effects have been discussed with her including tiredness, allergic reaction, and mood changes. If she develops any significant mood changes, she will be need to be moved to a different medication. Due to her moving out of the area, it was felt that Keppra would be the best medication to start her out. She was encouraged to get established as soon as possible with a neurologist in the [facility]. As far as the patient's unsteady balance, she has been recommended to use a rolling walker. The patient should be seen in followup by her primary care provider, Dr. Claudia Hong, if she is in the area. She does have an appointment set up for 11/11/16 at 12 p.m. The patient has been encouraged to get established with a new primary care provider in the [facility] as soon as possible. For the time being, the patient states that Dr. Hong will help manage her medications while she works to get a new provider. Given the patient's INR is subtherapeutic, she has been asked to check an INR on Wednesday with results to Dr. Hong, who will let the patient know if her warfarin needs to be adjusted. I did discuss with the patient the risks versus the benefits of being on warfarin with her falls and she would like to discuss this with her new primary care provider once established. The patient is going to resume her usual home medications. As far as the asymptomatic bacteriuria the patient has been encouraged to call her PCP for any urinary symptoms. This is a summarized report of a complex medical history and hospital stay. For further details, please see the entire medical record. TIME SPENT: Time for this discharge was 60 minutes, greater than half of that was spent [id number] with the patient and son discussing discharge plans and instructions. CONDITION ON DISCHARGE: Stable. Reviewed by THELMA DIAZ 11/07/16 0739 [id number] #: [id number] IVANIA
== END 2016-11-06 17:33 | disposition home or self-care (01) ==
LOC: ED 23:45 → MEDTELE 11-05 00:50
PROVIDERS: ADMIT Hospitalist; ATTEND Internal Medicine
DX: G40.109 Localization-related (focal) (partial) symptomatic epilepsy and epileptic syndromes with simple partial seizures, not intractable, without status epilepticus (principal); R47.01 Aphasia; R51 Headache; E11.9 Type 2 diabetes mellitus without complications; Z79.4 Long term (current) use of insulin; Z79.84 Long term (current) use of oral hypoglycemic drugs; I48.91 Unspecified atrial fibrillation; Z79.01 Long term (current) use of anticoagulants; I34.0 Nonrheumatic mitral (valve) insufficiency; I36.1 Nonrheumatic tricuspid (valve) insufficiency; M50.00 Cervical disc disorder with myelopathy, unspecified cervical region; I12.9 Hypertensive chronic kidney disease with stage 1 through stage 4 chronic kidney disease, or unspecified chronic kidney disease; E78.5 Hyperlipidemia, unspecified; D33.3 Benign neoplasm of cranial nerves; N18.3 Chronic kidney disease, stage 3 (moderate); Z85.3 Personal history of malignant neoplasm of breast; E03.9 Hypothyroidism, unspecified; Z79.82 Long term (current) use of aspirin
CPT/HCPCS: 36415; 70450; 70551; 70553; 71010; 72141; 80053; 80061; 81003; 81015; 83036; 83605; 84484; 85025; 85610; 85730; 86850; 86900; 86901; 87077; 87086; 87186; 93005; 93306; 93880; 95816; 99284; A9270-GY; A9579; G0378; G8978-GP-CJ; G8979-GP-CI